=== PATIENT | female | born 1980 | race Native Hawaiian/Other Pacific Islander ===

== ENCOUNTER 2017-05-25 18:30 | Inpatient (IN) | payer OTHER ==
[2017-05-25 19:34] VITALS: BMI 29.2
[2017-05-25] MEDS ORDERED: Lactated Ringer's 1,000 ML IV SCH (19:45)
[2017-05-25] MEDS ORDERED: Penicillin G 5 Million Unit Vial IVPB ONE (20:42)
--- NOTE | 2017-05-25 20:54 | OBHP ---
Datetime: 05/25/2017 20:47 IP Adm Impression: Term, intrauterine IP Admit Plan: Admit to unit Admit Comment, IP Provider: Patient is a @ 36.6 wks presents with vaginal bleeding and leaking. +FM, does not feel contractions. History of AMA and 9cm fibroid towards left of uterine fundus. Ante labs include GBS+, no other pertinent positives. No allergies, no medication patient is taking VE= grossly ruptured, /-3 [id number] mod layton, +accels, no decels TOCO = ctxning q 2-3 mins A/P 1. Patient is PPROM, in early labor. Will admit patient, start IVF, CBC, type and screen 2. Cytotec for induction 3. PCN for GBS prophylaxis 4. Patient did not want anything for pain at this time. 5. Re-evaluate as needed Pelvic Type - PN: Adequate Extremities - PN: Normal Abdomen - PN: Normal Back - PN: Normal Breast - PN: Normal Lungs - PN: Normal Heart - PN: Normal Thyroid - PN: Normal Neurologic - PN: Normal HEENT - PN: Normal General - PN: Normal Presentation-Admit: Breech FHR - Baseline A Provider: 120 mod layton Membranes, Provider: Ruptured Contraction Comments Provider: q 2-3 mins Pool Provider: Positive EGA AdmitDate IP: 36.6 Vital Signs Provider: Reviewed; Within Normal Limits IP Chief Complaint: Uterine contractions; Suspected ruptured membranes NICHD Variability Prov Fetus A: Moderate 6-25bpm NICHD Accel Fetus A IP Provider: [id number] NICHD Decel Fetus A IP Provider: None Dilatation, Provider: 2 Effacement, Provider: 50 Station, Provider: -2 Genitourinary Exam: Normal DTRs - PN: Normal
[2017-05-25 21:02] LABS: BASO % 0.1 % (0.0-2.0); EOS # 0.1 K/uL (0.0-0.7); EOS % 0.7 % (0.0-4.0); HEMOGLOBIN 11.3 g/dL (12.0-16.0); LYMPH # 1.4 K/uL (1.0-4.3); LYMPH % 18.3 % (20.0-40.0); MEAN CELL VOLUME 93.8 fl (81.0-99.0); MEAN CORPUSCULAR HEMOGLOBIN 32.2 pg (27.0-31.0); MEAN CORPUSCULAR HGB CONC 34.4 g/dL (33.0-37.0); MEAN PLATELET VOLUME 7.2 fl (7.2-11.7); MONO # 0.5 K/uL (0.0-0.8); MONO % 6.9 % (0.0-10.0); NEUT # 5.7 K/uL (1.8-7.0); RBC 3.52 Mil/uL (3.80-5.20); RED CELL DISTRIBUTION WIDTH 13.2 % (11.5-14.5); WHITE BLOOD COUNT 7.8 K/uL (4.8-10.8)
[2017-05-26] MEDS ORDERED: Bupivacaine HCl 0.25% PF (10 ml) Inj ONE (01:32)
[2017-05-26] MEDS ORDERED: Fentanyl/Bupivacaine HCl 250 ML EPI ONE (01:32)
[2017-05-26] MEDS ORDERED: Oxytocin 30 units/LR 500ML 30 UNITS/500 ML BAG IV ONE (02:36)
[2017-05-26] MEDS ORDERED: Lidocaine 2% Inj (20ml) ONE (02:37)
[2017-05-26] MEDS ORDERED: Oxycodone/Acetaminophen 5/325 mg Tab PO PRN ×4 (05:25→06:47)
[2017-05-26] MEDS ORDERED: Benzocaine/Menthol SPRAY TOP PRN ×2 (05:25→06:47)
--- NOTE | 2017-05-26 05:29 | OBADHP ---
Datetime: 05/25/2017 20:47 Admit Comment, IP Provider: Patient is a @ 36.6 wks presents with vaginal bleeding and leaking. +FM, does not feel contractions. History of AMA and 9cm fibroid towards left of uterine fundus. Ante labs include GBS+, no other pertinent positives. No allergies, no medication patient is taking VE= grossly ruptured, 250/-3 [id number] mod layton, +accels, no decels TOCO = ctxning q 2-3 mins A/P 1. Patient is PPROM, in early labor. Will admit patient, start IVF, CBC, type and screen 2. Cytotec for induction 3. PCN for GBS prophylaxis 4. Patient did not want anything for pain at this time. 5. Re-evaluate as needed Pelvic Type - PN: Adequate Extremities - PN: Normal Abdomen - PN: Normal Back - PN: Normal Breast - PN: Normal Lungs - PN: Normal Heart - PN: Normal Thyroid - PN: Normal Neurologic - PN: Normal HEENT - PN: Normal General - PN: Normal Presentation-Admit: Breech FHR - Baseline A Provider: 120 mod layton Membranes, Provider: Ruptured Contraction Comments Provider: q 2-3 mins Pool Provider: Positive Vital Signs Provider: Reviewed; Within Normal Limits IP Chief Complaint: Uterine contractions; Suspected ruptured membranes NICHD Variability Prov Fetus A: Moderate 6-25bpm NICHD Accel Fetus A IP Provider: [id number] NICHD Decel Fetus A IP Provider: None Dilatation, Provider: 2 Effacement, Provider: 50 Station, Provider: -2 Genitourinary Exam: Normal DTRs - PN: Normal EGA AdmitDate IP: 36.6 IP Adm Impression: Term, intrauterine IP Admit Plan: Admit to unit
--- NOTE | 2017-05-26 05:29 | OBDS ---
MATERNAL INFORMATION Provider Comments: of live male infant over intact perineum in RODO presentation, compound prese ntation, followed by shoulders and rest of , mouth and nose suctioned, cord clamped and cut, in ray placed in warmer, cord blood obtained, placenta delivered spontaneously, fundus firm, first degr ee laceration repaired with a 2-0 vicryl rapide, [id number] LABOR SUMMARY EDC: 06/16/2017 00:00 No. Babies in Womb: 1 LABOR INFORMATION Cervical Ripening Agents: Cyt[place] @ [facility] Beta Strep: Positive MEMBRANES Membranes Rupture Method: Spontaneous Rupture of Membranes: 05/25/2017 18:00 Amniotic Fluid Color: Bloody Amniotic Fluid Amount: Large IDENTIFICATION/MEDS BABY A ID Band Number: [id number]
[2017-05-26] MEDS ORDERED: Oxytocin 30 units/LR 500ML 30 UNITS/500 ML BAG IV SCH (05:30)
[2017-05-27 06:51] LABS: BASO % 0.2 % (0.0-2.0); EOS # 0.1 K/uL (0.0-0.7); EOS % 0.7 % (0.0-4.0); HEMOGLOBIN 9.5 g/dL (12.0-16.0); LYMPH # 1.4 K/uL (1.0-4.3); LYMPH % 13.4 % (20.0-40.0); MEAN CELL VOLUME 93.7 fl (81.0-99.0); MEAN CORPUSCULAR HEMOGLOBIN 32.2 pg (27.0-31.0); MEAN CORPUSCULAR HGB CONC 34.4 g/dL (33.0-37.0); MONO # 0.6 K/uL (0.0-0.8); MONO % 6.3 % (0.0-10.0); NEUT # 8.1 K/uL (1.8-7.0); NEUT % 79.4 % (50.0-75.0); RBC 2.96 Mil/uL (3.80-5.20); WHITE BLOOD COUNT 10.3 K/uL (4.8-10.8)
--- NOTE | 2017-05-27 14:09 | OBPPN ---
Datetime: 05/27/2017 14:06 PP Pain Prov: Within normal limits PP Nausea Prov: Denies PP Flatus Prov: Yes PP BM Prov: Yes PP Breasts Prov: Normal PP Heart Prov: Normal PP Lungs Prov: Normal PP Abdomen/Uterus Prov: Normal PP Lochia Prov: Normal PP Vulva/Perineum Prov: Normal PP CVA Tenderness Prov: Normal PP Extremities Prov: Normal PP Progress Prov: Normal PP Impression Prov: Normal progression PP Plan Prov: Continue present management PP Progress Note Prov: H/H 11/20 A: S/P day 1 Anemia - asymptomatic PLAN: anticipate discharge in AM Vital Signs Provider PP: Reviewed; Within Normal Limits
--- NOTE | 2017-05-28 08:29 | OBPPN ---
Datetime: 05/28/2017 08:27 PP Pain Prov: Within normal limits PP Nausea Prov: Denies PP Abdomen/Uterus Prov: Normal PP Lochia Prov: Normal PP Impression Prov: Normal progression PP Plan Prov: Discharge PP Progress Note Prov: PPd 2 s/p , doing well, breast and bottle feeding Rx's motrin and ferrous sulfate given Discharge home today Vital Signs Provider PP: Reviewed
--- NOTE | 2017-05-28 08:32 | OBDCSUM ---
Datetime: 05/28/2017 08:28 Discharged to, Provider: Home Follow up at, Provider: Dr. Moncada Disch Instr Diet: Regular Discharge Instructions, Provider: Routine instructions given Discharge Diagnosis, Provider: Term Delivered Discharge Time: 05/28/2017 08:28 Follow up in weeks, Provider: 6 weeks Contraception discussed, Prov: No
[2017-05-28 19:17] VITALS: BP 106/61; PULSE 67; RESP 20; TEMP 97.8; O2SAT 100
== END 2017-05-28 15:10 | disposition home or self-care (01) | DRG 774 ==
LOC: H.EROB2 18:30 → H.L&D 19:36 → H.OB/GYN 05-26 09:51
PROVIDERS: ADMIT Obstetrics & Gynecology; ATTEND Obstetrics & Gynecology
PROC: 0HQ9XZZ Repair Perineum Skin, External Approach (ICD-10-PCS; principal; 2017-05-25)
PROC: 10E0XZZ Delivery of Products of Conception, External Approach (ICD-10-PCS; 2017-05-25)
DX: O42.913 Preterm premature rupture of membranes, unspecified as to length of time between rupture and onset of labor, third trimester (principal); O32.6XX0 Maternal care for compound presentation, not applicable or unspecified; O67.9 Intrapartum hemorrhage, unspecified; O70.0 First degree perineal laceration during delivery; O99.02 Anemia complicating childbirth; Z3A.36 36 weeks gestation of pregnancy; Z37.0 Single live birth